=== PATIENT | female | born 1995 | race Caucasian/White ===

== ENCOUNTER 2019-02-15 09:08 | Emergency (ER) | payer MEDICAID ==
[~2019-02-15] VITALS: Ht 157.5 cm; Wt 62.0 kg
[2019-02-15 09:13] VITALS: BP 125/58; PULSE 83; RESP 18; Ht 157.5 cm; Wt 62.0 kg
== END 2019-02-15 11:34 | disposition home or self-care (01) ==
LOC: FTE 09:08
DX: O98.512 Other viral diseases complicating pregnancy, second trimester (principal); B34.9 Viral infection, unspecified; R07.9 Chest pain, unspecified; Z3A.18 18 weeks gestation of pregnancy
CPT/HCPCS: 71045; 93005; Z7502